=== PATIENT | female | born 2000 | race African-American/Black ===

== ENCOUNTER 2020-11-17 08:37 | Outpatient (RCR) | payer OTHER | END 2021-02-15 | disposition home or self-care (01) | LOC: WSST | DX: R06.00 Dyspnea, unspecified (principal); R07.89 Other chest pain ==

== ENCOUNTER 2021-07-29 17:10 | Emergency (ER) | payer OTHER ==
[~2021-07-29] VITALS: Ht 170.2 cm; Wt 56.4 kg
[2021-07-29 17:23] VITALS: TEMP 98.2
[2021-07-29 18:26] LABS: BASO % 0.3 % (0.0-2.0); EOS # 0.1 K/mm3 (0.0-0.7); EOS % 1.1 % (0.0-4.0); GRAN # 7.5 K/mm3 (1.4-6.5); GRAN % 76.6 % (42.2-75.2); HEMATOCRIT 37.3 % (37.0-47.0); HEMOGLOBIN 12.4 g/dl (12.5-16.0); LYMPH # 1.4 K/mm3 (1.2-3.4); LYMPH % 14.1 % (20.0-51.0); MEAN CELL VOLUME 94 fl (80.0-100.0); MEAN CORPUSCULAR HEMOGLOBIN 31 pg (27-31); MEAN CORPUSCULAR HGB CONC 33 g/dl (33.0-37.0); MEAN PLATELET VOLUME 10.8 fl (7.4-10.4); MONO # 0.7 K/mm3 (0.1-0.6); MONO % 7.5 % (1.7-9.3); PLATELET COUNT 229 K/mm3 (130-400); RED BLOOD COUNT 3.99 M/mm3 (4.10-5.30); REDCELL DISTRIBUTION WIDTH-CV 14.4 % (11.5-14.5)
[2021-07-29 18:41] LABS: BILIRUBIN,TOTAL 1.3 mg/dL (0.2-1.2); CALCIUM 9.5 mg/dL (8.4-10.2); CREATININE, serum 0.78 mg/dL (0.57-1.11); POTASSIUM 3.7 mmol/L (3.5-4.5); TOTAL PROTEIN 7.5 gm/dL (6.2-8.1)
[2021-07-29] MEDS ORDERED: ZOFRAN ODT4 MG PO (19:41)
[2021-07-29] MEDS ORDERED: NORCO 325 MG-51 TAB PO (19:41)
[2021-07-29 19:50] VITALS: BP 134/80; PULSE 74
== END 2021-07-29 19:59 | disposition home or self-care (01) ==
LOC: COL.ER 17:10
PROVIDERS: Personal Emergency Response Attendant
DX: R05.9 Cough, unspecified (principal)
CPT/HCPCS: J7030

== ENCOUNTER → 2021-11-29 | Outpatient (CLI) | payer OTHER ==
[~2021-11-29] MED LIST: NORCO 325 MG-51 TAB PO; ZOFRAN ODT4 MG PO
== END ==
LOC: COL.RAD 13:46
DX: M71.21 Synovial cyst of popliteal space [Baker], right knee (principal)
CPT/HCPCS: J3301